=== PATIENT | female | born 2000 ===

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

== ENCOUNTER 2022-01-10 02:08 | Emergency (ER) | payer OTHER ==
[~2022-01-10] VITALS: Ht 157.5 cm; Wt 47.6 kg
== END 2022-01-10 03:44 | disposition home or self-care (01) ==
LOC: ER 02:08
DX: F41.0 Panic disorder [episodic paroxysmal anxiety] (principal)
CPT/HCPCS: 99283

== ENCOUNTER 2023-08-17 22:52 | Inpatient (IN) | payer OTHER ==
[~2023-08-17] VITALS: Ht 157.5 cm; Wt 65.9 kg
[2023-08-17 22:59] VITALS: BP 100/58
[2023-08-17] MEDS ORDERED: PNV TABS 20-11 EACH PO (23:35)
[2023-08-17 23:47] LABS: BASOPHILS ABSOLUTE AUTO 0.06 K/mm3 (0.00-0.23); BASOPHILS PERCENT AUTO 0 % (0-2); EOSINOPHILS ABSOLUTE AUTO 0.01 K/mm3 (0.00-0.68); EOSINOPHILS PERCENT AUTO 0 % (0-6); Hematocrit 36.4 % (33.0-51.0); Hemoglobin 13.1 g/dL (11.5-16.0); IMMATURE GRAN ABSOLUTE AUTO 0.31 K/mm3 (0.00-0.10); IMMATURE GRAN PERCENT AUTO 2 % (0-1); LYMPHOCYTES ABSOLUTE AUTO 1.18 K/mm3 (0.84-5.20); LYMPHOCYTES PERCENT AUTO 6 % (21-46); MONOCYTES ABSOLUTE AUTO 1.93 K/mm3 (0.16-1.47); MONOCYTES PERCENT AUTO 9 % (4-13); Mean Corpuscular HGB 31.7 pg (26.0-34.0); Mean Corpuscular Volume 88 fL (80-100); Mean Platelet Volume 9.6 fL (9.1-12.4); NEUTROPHILS ABSOLUTE AUTO 17.76 K/mm3 (1.96-9.15); NEUTROPHILS PERCENT AUTO 84 % (41-73); Platelet Count 230 K/mm3 (150-400); RDW Coefficient Variation 13.3 % (11.7-14.2); Red Blood Cell Count 4.13 M/mm3 (3.80-5.20); White Blood Cell Count 21.25 K/mm3 (4.00-11.30)
[2023-08-18] VITALS (34 sets, daily range): BP systolic 91–110; BP diastolic 51–67
--- NOTE | 2023-08-18 07:43 | NUR ---
score remained 4 until 0530 and then improved to 5: 2 for heart rate; 2 for color; 1 for grimace; 0600 score of 6; same as previous with 1 increase point for tone; 0615 score increased to 7 with same as previous and with 1 more point for tone;
--- NOTE | 2023-08-18 07:51 | NUR ---
0403- baby on radiant warmer; tactile stimulation, warming and drying provided; ppv provided with t-piece on room air; good chest rise; heart rate 120 bpm; poor color aand no tone and no spont respirations; suction with delee provided; RT called to come for airway assistance; 0404- sao2 placed; sa02 60% ; 0407 RT in room; PPV turned over; heart monitors applied; 0408 baby intubated at 10cm at the gum with 3.5 tube; good color change on co2 detector; good breath sounds heard bilaterally; suction through ET tube; moderate amt of meconium stained fluid removed; 0410 DR Ross called to come; HR 150; O2 sats 60% O2 increased to 100%; 0418 baby transferred to [facility] via panda warmer; RT continued to provide ventilation through ET Tube; 0419: t 98.2; HR 167; sao2 97%; [id number] Dr Ross in room
--- NOTE | 2023-08-18 08:22 | NUR ---
spoke with dr palafox, aware of vital signs and pt being tachycardic in 120s howver 150-160 when i initially assumed care at 0715. aware that patient has voided in bed ahmadi but not been up yet. plan will be to make sure patient feels stable and is ok moving around on her own and do labs if she is agreeable this am before being discharged to be with her baby in [facility]
--- NOTE | 2023-08-18 08:26 | NUR ---
accidentally charted assessment and SBAR to Jone on [facility]- this RN performed assessment and accidentally charted on her.
[2023-08-18] MEDS ORDERED: DOCU100 PO (08:37)
[2023-08-18] MEDS ORDERED: IBUP800 PO (08:37)
[2023-08-18 12:33] LABS: Hematocrit 26.4 % (33.0-51.0); Hemoglobin 9.3 g/dL (11.5-16.0); Mean Corpuscular HGB Conc 35.2 g/dL (31.5-36.5); Mean Corpuscular Volume 91 fL (80-100); Mean Platelet Volume 9.8 fL (9.1-12.4); Platelet Count 226 K/mm3 (150-400); RDW Coefficient Variation 13.2 % (11.7-14.2); RDW Standard Deviation 44.3 fL (35.1-46.3); Red Blood Cell Count 2.91 M/mm3 (3.80-5.20); White Blood Cell Count 18.62 K/mm3 (4.00-11.30)
--- NOTE | 2023-08-18 14:33 | NUR ---
1400: ASSUME PT CARE. PT IS ASKING ABOUT D/C. FAMILY HAS THE ROOM PACKED UP AND WANTING TO KNOW WHEN THEY CAN LEAVE. PT HAS BEEN UP ONCE SINCE DELIVERY AND DENIES ANY DIZZINESS OR LIGHT HEADEDNESS. VS DONE. PULSE NOETED TO BE 110-120. PT ASKED TO GET UP SHE TOLERATES TO SEE HOW SHE FEELS BEING UP. HER FAMILY IS AT HER SIDE. D/C INSTRUCTIONS GIVEN TO PT. SHE IS READING OVER THOSE NOW. WE WILL REASSESS VS AND HOW PT IS FEELING IN ONE HOUR. D/C ORDER RECEIVED. SOME D/C TEACHING DONE. PT ASKS APPROPRIATE QUESTIONS.
--- NOTE | 2023-08-18 15:42 | NUR ---
1515: PT REPORTS SHE HAD BEEN UP AMB IN THE ROOM IN THE LAST HOUR AND USING BRP. PT REPORTS LOCHIA IS LIGHT BUT THAT SHE STARTED HAVING SOME RINGING IN HER EARS WHEN AMBULATING IN THE ROOM. PT'S PULSE IS DOWN TO 100S. PT DESIRES TO TAKE A NAP AND WILL CALL RN WHEN SHE WAKES UP TO SEE HOW SHE FEELS AFTERWARDS. DISCUSSED AND SIGNED D/C INSTRUCTIONS. PT'S FAMILY AT HER SIDE.
--- NOTE | 2023-08-18 15:44 | NUR ---
SCHEDULING PPFU VISIT. PT NOT SURE IF SHE WILL BE IN [place] OR [facility]. SCHEDULED A PHONE CALL VISIT WITH OUR NURSE AND CONTENT ARCHITECT. PT VERY THANKFUL FOR THAT.
--- NOTE | 2023-08-18 18:26 | NUR ---
PT UP AMBULATING IN THE ROOM. REPORTS SHE FEELS MUCH BETTER AFTER HER NAP DENIES DIZZINESS. PT DESIRES D/C HOME. IV D/C. PT D/C HOME
[2023-08-19 19:10] LABS: HBSAG SCREEN Negative (Negative)
[2023-08-19 20:11] LABS: HIV AB/P24 AG SCREEN Non Reactive (Non Reactive)
== END 2023-08-18 18:30 | disposition home or self-care (01) | DRG 806 ==
LOC: OBS 22:52 → BC 22:55 → OBS 23:08 → BC 23:09
PROVIDERS: ADMIT Obstetrics & Gynecology
PROC: BY4FZZZ Ultrasonography of Third Trimester, Single Fetus (ICD-10-PCS; 2023-08-17)
PROC: 4A1HXCZ Monitoring of Products of Conception, Cardiac Rate, External Approach (ICD-10-PCS; 2023-08-17)
PROC: 10E0XZZ Delivery of Products of Conception, External Approach (ICD-10-PCS; principal; 2023-08-18)
PROC: 0KQM0ZZ Repair Perineum Muscle, Open Approach (ICD-10-PCS; 2023-08-18)
PROC: 10907ZC Drainage of Amniotic Fluid, Therapeutic from Products of Conception, Via Natural or Artificial Opening (ICD-10-PCS; 2023-08-18)
PROC: 3E02340 Introduction of Influenza Vaccine into Muscle, Percutaneous Approach (ICD-10-PCS; 2023-08-18)
DX: O48.0 Post-term pregnancy (principal); O63.9 Long labor, unspecified; Z37.0 Single live birth; O99.12 Other diseases of the blood and blood-forming organs and certain disorders involving the immune mechanism complicating childbirth; Z3A.42 42 weeks gestation of pregnancy; D72.829 Elevated white blood cell count, unspecified; O77.0 Labor and delivery complicated by meconium in amniotic fluid; O70.1 Second degree perineal laceration during delivery; Z23 Encounter for immunization
CPT/HCPCS: 36415; 85025; 85027; 86592; 86762; 86850; 86900; 86901; J2590

== ENCOUNTER → 2023-11-18 | Outpatient (CLI) | payer OTHER ==
[~2023-11-18] MED LIST: DOCU100 PO; IBUP800 PO; PNV TABS 20-11 EACH PO
[2023-11-18 14:50] LABS: BASOPHILS ABSOLUTE AUTO 0.08 K/mm3 (0.00-0.23); BASOPHILS PERCENT AUTO 1 % (0-2); EOSINOPHILS ABSOLUTE AUTO 0.49 K/mm3 (0.00-0.68); EOSINOPHILS PERCENT AUTO 9 % (0-6); Hematocrit 40.3 % (33.0-51.0); Hemoglobin 13.6 g/dL (11.5-16.0); IMMATURE GRAN ABSOLUTE AUTO 0.01 K/mm3 (0.00-0.10); IMMATURE GRAN PERCENT AUTO 0 % (0-1); LYMPHOCYTES ABSOLUTE AUTO 1.63 K/mm3 (0.84-5.20); LYMPHOCYTES PERCENT AUTO 29 % (21-46); MONOCYTES PERCENT AUTO 9 % (4-13); Mean Corpuscular HGB 27.5 pg (26.0-34.0); Mean Corpuscular HGB Conc 33.7 g/dL (31.5-36.5); Mean Corpuscular Volume 81 fL (80-100); Mean Platelet Volume 9.6 fL (9.1-12.4); NEUTROPHILS PERCENT AUTO 52 % (41-73); Platelet Count 232 K/mm3 (150-400); RDW Coefficient Variation 13.9 % (11.7-14.2); RDW Standard Deviation 41.1 fL (35.1-46.3); Red Blood Cell Count 4.95 M/mm3 (3.80-5.20); White Blood Cell Count 5.61 K/mm3 (4.00-11.30)
[2023-11-20 06:12] LABS: A/G RATIO 2.6 (1.2-2.2); BILIRUBIN, TOTAL 0.3 mg/dL (0.0-1.2); CALCIUM, SERUM 9.7 mg/dL (8.7-10.2); CREATININE, SERUM 0.68 mg/dL (0.57-1.00); GLOBULIN, TOTAL 1.9 g/dL (1.5-4.5); POTASSIUM, SERUM 4.2 mmol/L (3.5-5.2); PROTEIN, TOTAL, SERUM 6.8 g/dL (6.0-8.5)
== END ==
LOC: LAB 13:52 → LAB SHORT 13:52
PROVIDERS: Hospitalist
DX: D64.9 Anemia, unspecified (principal); E55.9 Vitamin D deficiency, unspecified
CPT/HCPCS: 80053; 82306; 82607; 85025